=== PATIENT | male | born 1960 | race Caucasian/White ===

== ENCOUNTER 2021-01-29 05:35 | Day surgery (SDC) | payer BC, OTHER ==
[2021-01-26 11:02] VITALS: BMI 34.7
[2021-01-29] MEDS ORDERED: ACETAMINOPHEN 325 MG TABLET (FP) PO PRN (12:17)
[2021-01-29] MEDS ORDERED: ONDANSETRON 4 MG/2 ML VIAL IVPUSH PRN (12:17)
[2021-01-29] MEDS ORDERED: MIDAZOLAM HCL 2 MG/2 ML SINGLE DOSE VIAL ONE ×2 (12:19→12:38)
[2021-01-29] MEDS ORDERED: LACTATED RINGERS SOLUTION 1,000 ML IV SCH (12:30)
[2021-01-29 15:40] VITALS: TEMP 97.4
[2021-01-29 15:43] VITALS: BP 142/76; PULSE 72
== END 2021-01-29 14:25 | disposition home or self-care (01) ==
LOC: JASU-SURG 05:35
PROVIDERS: ATTEND Urology
PROC: 0TF3XZZ Fragmentation in Right Kidney Pelvis, External Approach (ICD-10-PCS; principal; 2021-01-29 11:30)
DX: N20.0 Calculus of kidney (principal)

== ENCOUNTER 2021-12-28 10:51 | Inpatient (IN) | payer BC, OTHER ==
[2021-12-28 10:59] VITALS: TEMP 98.3; BMI 36.1
[2021-12-28 12:28] LABS: BASO % 0.5 % (0-2.0); EOS % 2.1 % (0-4.5); HEMATOCRIT 36.4 % (35.4-49); HEMOGLOBIN 12.4 GM/dL (11.7-16.9); LYMPH % 21.2 % (8-40); MCH 31.1 pg (25.7-33.7); MCHC 34.1 g/dl (32.0-35.9); MEAN CELL VOLUME 91.3 fl (80-96); MEAN PLT VOLUME 8.7 fl (7.5-11.1); MONO % 11.4 % (3.8-10.2); NEUT % 64.8 % (42.8-82.8); PLATELET COUNT 219 10^3/uL (134-434); RBC 3.98 M/mm3 (4.00-5.60); RDW 14.6 % (11.9-15.9); WHITE BLOOD COUNT 4.7 K/mm3 (4.0-10.0)
[2021-12-28 12:44] LABS: INR 0.94 (0.83-1.09); PROTHROMBIN TIME (PATIENT) 10.8 SEC (9.7-13.0)
[2021-12-28 13:54] LABS: ALBUMIN 3.3 g/dl (3.4-5.0); BLOOD UREA NITROGEN 16.7 mg/dL (7-18); CALCIUM 8.8 mg/dL (8.5-10.1); MAGNESIUM 2.2 mg/dL (1.8-2.4)
[2021-12-28 13:57] LABS: CREATININE 0.9 mg/dL (0.55-1.3)
[2021-12-28 13:59] LABS: BILIRUBIN,TOTAL 0.7 mg/dL (0.2-1); TOT PROT 6.5 g/dl (6.4-8.2)
[2021-12-28 14:02] LABS: N-TERMINAL BNP 1266.4 pg/ml (5-125)
[2021-12-28 14:28] VITALS: BP 132/79; PULSE 86
[2021-12-28] MEDS ORDERED: POTASSIUM CHLORIDE TABS 10 MEQ TABLET.ER (FP) PO SCH (22:00)
[2021-12-28] MEDS ORDERED: METOPROLOL TARTRATE 25 MG TABLET (FP) PO SCH (22:00)
[2021-12-28] MEDS ORDERED: ENOXAPARIN NA (PORCINE) 100 MG/1 ML DISP.SYRIN SQ SCH (22:00)
[2021-12-29] MEDS ORDERED: FUROSEMIDE 40 MG/4 ML INJECTABLE VIAL IVPUSH SCH (06:00)
[2021-12-29] MEDS ORDERED: TAMSULOSIN HCL 0.4 MG CAP PO SCH (08:30)
[2021-12-29] MEDS ORDERED: LOSARTAN POTASSIUM 50 MG TABLET PO SCH (10:00)
[2021-12-30] MEDS ORDERED: dilTIAZem HCL 30 MG TABLET ONE (05:07)
== END 2021-12-28 23:10 | disposition left against medical advice (07) | DRG 313 ==
LOC: JER 10:51 → JERBED 14:54
PROVIDERS: ADMIT Family Medicine; ATTEND Family Medicine
DX: R07.89 Other chest pain (principal); I10 Essential (primary) hypertension; E78.5 Hyperlipidemia, unspecified; G47.33 Obstructive sleep apnea (adult) (pediatric); I48.91 Unspecified atrial fibrillation; R00.0 Tachycardia, unspecified; Z85.46 Personal history of malignant neoplasm of prostate
CPT/HCPCS: 36415; 71045-TC-FY; 80053; 83735; 83880; 84484; 85025; 85610; 85730; 93005; 93010; 93306-TC; 99285-25; C9803-CS; U0003; U0005

== ENCOUNTER 2022-09-10 04:53 | Day surgery (SDC) | payer BC, OTHER ==
[2022-09-06 13:47] VITALS: BMI 38.0
[2022-09-10 08:55] VITALS: RESP 18
[2022-09-10 09:53] VITALS: BP 141/71; PULSE 73; TEMP 97.5
== END 2022-09-10 09:47 | disposition home or self-care (01) ==
LOC: JASU-ENDO 04:53
PROVIDERS: ATTEND Student in an Organized Health Care Education/Training Program
PROC: 0DB78ZX Excision of Stomach, Pylorus, Via Natural or Artificial Opening Endoscopic, Diagnostic (ICD-10-PCS; 2022-09-10)
PROC: 0DB68ZX Excision of Stomach, Via Natural or Artificial Opening Endoscopic, Diagnostic (ICD-10-PCS; 2022-09-10)
PROC: 0DB98ZX Excision of Duodenum, Via Natural or Artificial Opening Endoscopic, Diagnostic (ICD-10-PCS; principal; 2022-09-10 08:00)
DX: K29.50 Unspecified chronic gastritis without bleeding (principal); K31.7 Polyp of stomach and duodenum; K20.90 Esophagitis, unspecified without bleeding
CPT/HCPCS: 88305-TC; 88342-TC

== ENCOUNTER 2023-05-09 04:38 | Day surgery (SDC) | payer BC, OTHER ==
[2023-05-07 10:45] VITALS: BMI 38.0
[2023-05-09 09:44] VITALS: BP 132/70; PULSE 73; RESP 20; TEMP 98.1
== END 2023-05-09 10:21 | disposition home or self-care (01) ==
LOC: JASU-ENDO 04:38
PROVIDERS: ATTEND Student in an Organized Health Care Education/Training Program
PROC: 0DBL8ZX Excision of Transverse Colon, Via Natural or Artificial Opening Endoscopic, Diagnostic (ICD-10-PCS; 2023-05-09)
PROC: 0DBN8ZX Excision of Sigmoid Colon, Via Natural or Artificial Opening Endoscopic, Diagnostic (ICD-10-PCS; principal; 2023-05-09 08:00)
DX: K63.5 Polyp of colon (principal); K57.30 Diverticulosis of large intestine without perforation or abscess without bleeding; I10 Essential (primary) hypertension
CPT/HCPCS: 88305-TC